=== PATIENT | female | born 1950 | race Caucasian/White ===

== ENCOUNTER → 2018-07-04 | Outpatient (CLI) | payer MEDICARE, OTHER | LOC: M.RAD 13:30 | DX: Z12.31 Encounter for screening mammogram for malignant neoplasm of breast (principal) ==

== ENCOUNTER 2020-06-04 16:52 | Emergency (ER) | payer MEDICARE, OTHER ==
[~2020-06-04] VITALS: Ht 162.6 cm; Wt 73.9 kg
[2020-06-04] MEDS ORDERED: PREDNISONE50 MG PO (17:17)
[2020-06-04] MEDS ORDERED: LEVOTHYROXINE125 MC1 PO (17:17)
[2020-06-04] MEDS ORDERED: CHLOROQUINE PH PO (17:18)
[2020-06-04] MEDS ORDERED: NORVASC5 M1 PO (17:19)
[2020-06-04 17:47] LABS: ABSOLUTE BASOPHILS 0.1 thou/uL (0.0-0.2); ABSOLUTE EOSINOPHILS 0.1 thou/uL (0.0-0.7); ABSOLUTE LYMPHOCYTES 1.5 thou/uL (0.8-5.3); ABSOLUTE MONOCYTES 1.1 thou/uL (0.0-1.2); ABSOLUTE NEUTROPHILS 14.7 thou/uL (1.6-8.1); BASOPHILS 0.8 %; EOSINOPHILS 0.3 %; HEMATOCRIT 37.1 % (37.0-47.0); HEMOGLOBIN 12.5 gm/dL (12.0-15.0); LYMPHOCYTES 8.6 %; MCH 29.8 pg (26.0-34.0); MCHC 33.7 g/dL (28.0-37.0); MCV 88.4 fL (80.0-100.0); MONOCYTES 6.2 %; MPV 5.8 fl. (7.2-11.1); NUCLEATED RBCS 0 /100WBC; PLATELET COUNT* 823 thou/uL (150-400); POLYS 84.1 %; RDW-CV 13.8 % (10.5-14.5); WBC 17.4 thou/uL (4.0-11.0)
[2020-06-04 17:56] LABS: CREATININE 0.7 mg/dL (0.6-1.3); POTASSIUM 3.1 mmol/L (3.5-5.1)
[2020-06-04 18:01] LABS: ALBUMIN 2.7 g/dL (3.4-5.0); TOTAL BILIRUBIN 0.4 mg/dL (<0.1-1.0); TOTAL PROTEIN 7.4 g/dL (6.4-8.2)
[2020-06-04] MEDS ORDERED: HYDROCODON-ACE1 EAC7 PO (18:36)
[2020-06-04 18:47] VITALS: BP 144/69
[2020-06-04 18:56] LABS: ESR (SEDRATE) 85 mm/hr (0-30)
== END 2020-06-04 18:47 | disposition home or self-care (01) ==
LOC: M.ERS 16:52
PROVIDERS: Family Medicine
DX: R53.1 Weakness (principal); E87.6 Hypokalemia; E87.1 Hypo-osmolality and hyponatremia; Z20.822 Contact with and (suspected) exposure to COVID-19; Z88.8 Allergy status to other drugs, medicaments and biological substances

== ENCOUNTER → 2020-10-04 | Outpatient (CLI) | payer MEDICARE, OTHER ==
[~2020-10-04] MED LIST: CHLOROQUINE PH PO; HYDROCODON-ACE1 EAC7 PO; LEVOTHYROXINE125 MC1 PO; NORVASC5 M1 PO; PREDNISONE50 MG PO
== END ==
LOC: M.RAD 08:20
PROVIDERS: ATTEND Student in an Organized Health Care Education/Training Program
DX: Z12.31 Encounter for screening mammogram for malignant neoplasm of breast (principal); N64.89 Other specified disorders of breast

== ENCOUNTER → 2020-10-31 | Outpatient (CLI) | payer MEDICARE, OTHER ==
[2020-10-31 13:29] LABS: HEMATOCRIT 40.4 % (37.0-47.0); HEMOGLOBIN 13.5 gm/dL (12.0-15.0); MCH 30.3 pg (26.0-34.0); MCHC 33.4 g/dL (28.0-37.0); MCV 90.9 fL (80.0-100.0); MPV 5.8 fl. (7.2-11.1); NUCLEATED RBCS 0 /100WBC; PLATELET COUNT* 488 thou/uL (150-400); RBC 4.45 mil/uL (4.20-5.00); RDW-CV 15.5 % (10.5-14.5); WBC 17.7 thou/uL (4.0-11.0)
[2020-10-31 13:43] LABS: ABSOLUTE LYMPHOCYTES 0.7 thou/uL (0.8-5.3); ABSOLUTE MONOCYTES 0.5 thou/uL (0.0-1.2); ABSOLUTE NEUTROPHILS 16.5 thou/uL (1.6-8.1); ALBUMIN 3.6 g/dL (3.4-5.0); CALCIUM 9.1 mg/dL (8.5-10.1); CREATININE 0.8 mg/dL (0.6-1.3); PLATELET ESTIMATE INCREASED; POTASSIUM 4.5 mmol/L (3.5-5.1); TOTAL BILIRUBIN 0.5 mg/dL (<0.1-1.0); TOTAL PROTEIN 6.9 g/dL (6.4-8.2)
== END ==
LOC: M.LAB 13:00 → M.CT 13:30
PROVIDERS: ATTEND Family Medicine
DX: K57.30 Diverticulosis of large intestine without perforation or abscess without bleeding (principal); R10.2 Pelvic and perineal pain; R10.9 Unspecified abdominal pain; R10.13 Epigastric pain

== ENCOUNTER → 2020-11-22 | Outpatient (CLI) | payer MEDICARE, OTHER | LOC: M.RAD 09:00 | PROVIDERS: ATTEND Family Medicine | DX: M81.0 Age-related osteoporosis without current pathological fracture (principal); M85.851 Other specified disorders of bone density and structure, right thigh; M85.88 Other specified disorders of bone density and structure, other site ==